=== PATIENT | male | born 1945 | race Caucasian/White ===

== ENCOUNTER 2016-05-12 10:20 | Day surgery (SDC) | payer MEDICARE ==
--- NOTE | ~2016-05-12 | EGD ---
EGD REPORT [facility] [address] 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 Procedure: Pre-Anesthesia Assessment: - ASA Grade Assessment: IV - A patient with severe systemic disease that is a constant threat to life. After I obtained informed consent, the scope was passed under direct vision. Throughout the procedure, the patient's blood pressure, pulse, and oxygen saturations were monitored continuously. The PCF [id number] was introduced through the anus and advanced to the terminal ileum, with identification of the appendiceal orifice and IC valve. The colonoscopy was performed without difficulty. The patient tolerated the procedure well. The quality of the bowel preparation was adequate. Findings: The perianal and digital rectal examinations were normal. The terminal ileum appeared normal. Internal hemorrhoids were found during retroflexion and were small. Normal mucosa was found in the ascending colon. Biopsies were taken with a cold forceps for histology. Chronic colitis trasnverse colon, Biopsies were taken with a cold forceps for histology. Chronic colitis descending colon, Biopsies were taken with a cold forceps for histology. Chronic colitis sigmoid colon, Biopsies were taken with a cold forceps for histology. Normal rectum except active proctitis in distal rectum, Biopsies were taken with a cold forceps for histology. Impression: - The examined portion of the ileum was normal. - Internal hemorrhoids. - Normal mucosa in the ascending colon. Biopsied. - Chronic colitis trasnverse colon EGD REPORT [address] [place]. [address] NAME: MELY SALDANA : 41 STATUS : REG [facility] PAT#: [id number] AGE: 70 ADM/REG DATE : 05/12/16 MR#: [id number] REPORT SERV DATE: 05/12/16 DICTATED BY: SRINI NASH DATE: 05/12/16 REPORT STATUS : Draft TRANSCRIBED BY: [employer] DATE: 05/12/16 - Chronic colitis descending colon - Chronic colitis sigmoid colon - Normal rectum except active proctitis in distal rectum Recommendation: - Patient has a contact number available for emergencies. The signs and symptoms of potential delayed complications were discussed with the patient. Return to normal activities tomorrow. Written discharge instructions were provided to the patient. - Regular diet. - Continue present medications. - Repeat colonoscopy in 2 years for surveillance. - Return to my office in 6 months. Procedure Code(s): --- Professional --- 42844, Colonoscopy, flexible, proximal to splenic flexure; with biopsy, single or multiple Diagnosis Code(s): --- Professional --- K64.8, Other hemorrhoids K51.00, Ulcerative (chronic) pancolitis without complications CPT copyright 2013 [employer]. All rights reserved. The codes documented in this report are preliminary and upon dining room server review may be revised to meet current compliance requirements. Srini Nash MD SRINI NASH MD 05/12/2016 12:25 PM This report has been signed electronically. Number of Addenda: 0 Note Initiated On: 05/12/2016 12:06 PM Scope Withdrawal Time 0 hours 6 minutes 38 seconds [address] [id number]
[~2016-05-12 10:20] MED LIST: ACIDOPHILUS PO; ASAB PO; BENTYL20 PO; COREG3 PO; D100 PO; FISH-EPA1000 MG PO; FOLIC PO; IBU-200200 MG PO; LIALDA1.2 GM PO; LORCET PO; LORTAB 5 PO; PRILO PO; ZANTAC150 MG PO; ZESTRIL10 MG PO; ZOCOR20 PO; [UNRECOGNIZED DRUG - OTHER]
== END 2016-05-12 23:59 | disposition home or self-care (01) ==
LOC: DMU 10:20
PROVIDERS: Internal Medicine Gastroenterology
PROC: 0DBP8ZX Excision of Rectum, Via Natural or Artificial Opening Endoscopic, Diagnostic (ICD-10-PCS; 2016-05-12)
PROC: 0DBN8ZX Excision of Sigmoid Colon, Via Natural or Artificial Opening Endoscopic, Diagnostic (ICD-10-PCS; 2016-05-12)
PROC: 0DBM8ZX Excision of Descending Colon, Via Natural or Artificial Opening Endoscopic, Diagnostic (ICD-10-PCS; 2016-05-12)
PROC: 0DBL8ZX Excision of Transverse Colon, Via Natural or Artificial Opening Endoscopic, Diagnostic (ICD-10-PCS; principal; 2016-05-12 12:00)
DX: Z12.11 Encounter for screening for malignant neoplasm of colon (principal); K62.89 Other specified diseases of anus and rectum; K51.00 Ulcerative (chronic) pancolitis without complications; K64.8 Other hemorrhoids; K21.9 Gastro-esophageal reflux disease without esophagitis; I25.10 Atherosclerotic heart disease of native coronary artery without angina pectoris; I25.2 Old myocardial infarction; E78.00 Pure hypercholesterolemia, unspecified; G40.909 Epilepsy, unspecified, not intractable, without status epilepticus; G81.94 Hemiplegia, unspecified affecting left nondominant side; M19.90 Unspecified osteoarthritis, unspecified site; Z90.02 Acquired absence of larynx; Z87.820 Personal history of traumatic brain injury; Z87.891 Personal history of nicotine dependence; Z91.041 Radiographic dye allergy status; Z79.82 Long term (current) use of aspirin; Z79.899 Other long term (current) drug therapy
CPT/HCPCS: 88305; J2370